=== PATIENT | female | born 2000 | race Caucasian/White ===

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

== ENCOUNTER 2021-01-17 23:56 | Inpatient (IN) | payer BC, OTHER ==
[~2021-01-17] VITALS: Ht 170.2 cm; Wt 59.0 kg
[~2021-01-17 23:56] MED LIST changes: -ESCITALOPRAM OX20 MG PO; +LEVOFLOXACIN500 MG PO; +PROZAC 10 MG CA10 MG PO
[2021-01-18 00:28] LABS: HEMOGLOBIN 15.7 gm/dl (12.3-15.3); RED BLOOD COUNT 5.23 M/UL (4.00-5.10)
[2021-01-18 00:41] LABS: WHITE BLOOD COUNT 33.1 K/UL (4.5-11.0)
[2021-01-18 00:52] LABS: BUN/CREATININE RATIO 27 (0-10)
[2021-01-18 03:10] LABS: BUN/CREATININE RATIO 25 (0-10)
[2021-01-18 09:30] LABS: RED BLOOD COUNT 4.83 M/UL (4.00-5.10)
[2021-01-18 09:32] LABS: WHITE BLOOD COUNT 17.2 K/UL (4.5-11.0)
[2021-01-18 09:50] LABS: BUN/CREATININE RATIO 22 (0-10)
[2021-01-18 12:58] LABS: BUN/CREATININE RATIO 26 (0-10)
[2021-01-18 16:55] LABS: BUN/CREATININE RATIO 21 (0-10)
[2021-01-18 20:20] LABS: BUN/CREATININE RATIO 26 (0-10)
[2021-01-19 05:12] LABS: HEMOGLOBIN 12.3 gm/dl (12.3-15.3)
[2021-01-19 05:27] LABS: RED BLOOD COUNT 4.25 M/UL (4.00-5.10); WHITE BLOOD COUNT 7.9 K/UL (4.5-11.0)
[2021-01-19 05:31] LABS: BUN/CREATININE RATIO 13 (0-10)
[2021-01-19 09:34] LABS: BUN/CREATININE RATIO 12 (0-10)
[2021-01-19 10:50] LABS: BUN/CREATININE RATIO 11 (0-10)
[2021-01-19 13:01] LABS: BUN/CREATININE RATIO 9 (0-10)
[2021-01-19 16:59] LABS: BUN/CREATININE RATIO 10 (0-10)
[2021-01-19 18:49] LABS: BUN/CREATININE RATIO 12 (0-10)
[2021-01-19 22:22] LABS: BUN/CREATININE RATIO 13 (0-10)
[2021-01-20 03:10] LABS: HEMOGLOBIN 10.7 gm/dl (12.3-15.3); RED BLOOD COUNT 3.83 M/UL (4.00-5.10); WHITE BLOOD COUNT 5.4 K/UL (4.5-11.0)
[2021-01-20 03:40] LABS: BUN/CREATININE RATIO 12 (0-10)
[2021-01-20] MEDS ORDERED: K-PHOS TAB505 MG PO (11:00)
[2021-01-20 16:09] LABS: BUN/CREATININE RATIO 12 (0-10)
== END 2021-01-20 17:10 | disposition home or self-care (01) | DRG 637 ==
LOC: ER1 23:56 → CDU 01-18 04:01 → CCU 01-18 04:01
PROVIDERS: Family Medicine; Internal Medicine; ADMIT Internal Medicine
DX: E10.10 Type 1 diabetes mellitus with ketoacidosis without coma (principal); K85.90 Acute pancreatitis without necrosis or infection, unspecified; Z20.822 Contact with and (suspected) exposure to COVID-19; F90.9 Attention-deficit hyperactivity disorder, unspecified type; F41.9 Anxiety disorder, unspecified; E86.0 Dehydration; E87.6 Hypokalemia; E83.39 Other disorders of phosphorus metabolism; E83.42 Hypomagnesemia; Z79.4 Long term (current) use of insulin; Z91.14 Patient's other noncompliance with medication regimen; Z80.6 Family history of leukemia
CPT/HCPCS: 36415; 71045; 80048; 80053; 80307; 81001; 82009; 82150; 82550; 82553; 82803; 82962; 83036; 83605; 83690; 83735; 83874; 84100; 84484; 84703; 85025; 85027; 87040; 96374; 99285; C9113; J1650; J2405; J3475; J3480; J7030; Q9967; U0002

== ENCOUNTER 2021-05-16 19:25 | Emergency (ER) | payer BC, OTHER ==
[~2021-05-16 19:25] MED LIST changes: +K-PHOS TAB505 MG PO
[2021-05-16] MEDS ORDERED: IBUPROFEN600 MG PO (20:19)
[2021-05-16] MEDS ORDERED: CEPHALEXIN500 MG PO (20:19)
== END 2021-05-16 20:43 | disposition home or self-care (01) ==
LOC: ER1 19:25
DX: T17.1XXA Foreign body in nostril, initial encounter (principal); J34.0 Abscess, furuncle and carbuncle of nose; E10.9 Type 1 diabetes mellitus without complications; F17.290 Nicotine dependence, other tobacco product, uncomplicated
CPT/HCPCS: 30300; 99283

== ENCOUNTER 2021-06-12 07:43 | Inpatient (IN) | payer BC, OTHER ==
[~2021-06-12] VITALS: Ht 170.2 cm; Wt 61.2 kg
[~2021-06-12 07:43] MED LIST changes: +CEPHALEXIN500 MG PO; +IBUPROFEN600 MG PO
[2021-06-12 08:18] LABS: HEMOGLOBIN 15.8 gm/dl (12.3-15.3); RED BLOOD COUNT 5.32 M/UL (4.00-5.10); WHITE BLOOD COUNT 14.1 K/UL (4.5-11.0)
[2021-06-12 09:26] LABS: BUN/CREATININE RATIO 26 (0-10)
[2021-06-12 11:11] LABS: BUN/CREATININE RATIO 22 (0-10)
[2021-06-12] MEDS ORDERED: ADMELOG SO100 UNIT/1 SC (11:57)
[2021-06-12 12:56] LABS: BUN/CREATININE RATIO 22 (0-10)
[2021-06-12 15:46] LABS: BUN/CREATININE RATIO 18 (0-10)
[2021-06-12 20:36] LABS: BUN/CREATININE RATIO 15 (0-10)
[2021-06-13 00:04] LABS: BUN/CREATININE RATIO 12 (0-10)
[2021-06-13 09:33] LABS: HEMOGLOBIN 12.3 gm/dl (12.3-15.3); RED BLOOD COUNT 4.2 M/UL (4.00-5.10); WHITE BLOOD COUNT 7.3 K/UL (4.5-11.0)
[2021-06-13 09:53] LABS: BUN/CREATININE RATIO 10 (0-10)
[2021-06-13 12:13] LABS: BUN/CREATININE RATIO 11 (0-10)
[2021-06-13 16:09] LABS: BUN/CREATININE RATIO 12 (0-10)
[2021-06-14 05:09] LABS: HEMOGLOBIN 11.6 gm/dl (12.3-15.3); RED BLOOD COUNT 3.94 M/UL (4.00-5.10)
[2021-06-14 05:11] LABS: WHITE BLOOD COUNT 5.1 K/UL (4.5-11.0)
[2021-06-14 05:38] LABS: BUN/CREATININE RATIO 13 (0-10)
[2021-06-14 15:26] LABS: BUN/CREATININE RATIO 10 (0-10)
== END 2021-06-14 17:17 | disposition home or self-care (01) | DRG 639 ==
LOC: ER1 07:43 → CDU 11:28 → PROG CARE 13:04 → CCU 21:02
PROVIDERS: Nurse Practitioner; Physician Assistant Medical; ADMIT Internal Medicine Infectious Disease
DX: E10.10 Type 1 diabetes mellitus with ketoacidosis without coma (principal); E87.6 Hypokalemia; R79.89 Other specified abnormal findings of blood chemistry; Z20.822 Contact with and (suspected) exposure to COVID-19; F90.9 Attention-deficit hyperactivity disorder, unspecified type; F41.9 Anxiety disorder, unspecified; Z79.4 Long term (current) use of insulin; Z80.6 Family history of leukemia; Z87.19 Personal history of other diseases of the digestive system; Z88.0 Allergy status to penicillin
CPT/HCPCS: 36415; 71045; 80048; 80053; 81001; 82009; 82150; 82803; 82962; 83036; 83605; 83690; 83735; 84702; 85025; 85027; 87040; 93005; 96374; 99285; G0480; J2060; J7030; J7040; U0002

== ENCOUNTER 2021-11-09 13:24 | Inpatient (IN) | payer BC, OTHER ==
[~2021-11-09] VITALS: Ht 165.1 cm; Wt 59.4 kg
[2021-11-09 14:26] LABS: HEMOGLOBIN 16.3 gm/dl (12.3-15.3); RED BLOOD COUNT 5.41 M/UL (4.00-5.10); WHITE BLOOD COUNT 10.9 K/UL (4.5-11.0)
[2021-11-09 14:41] LABS: BUN/CREATININE RATIO 16 (0-10)
[2021-11-09] MEDS ORDERED: VYVANSE30 MG PO (16:39)
[2021-11-09 18:27] LABS: BUN/CREATININE RATIO 22 (0-10)
[2021-11-09 22:35] LABS: BUN/CREATININE RATIO 15 (0-10)
[2021-11-10 02:55] LABS: BUN/CREATININE RATIO 12 (0-10)
[2021-11-10 07:01] LABS: HEMOGLOBIN 12.2 gm/dl (12.3-15.3); RED BLOOD COUNT 4.08 M/UL (4.00-5.10); WHITE BLOOD COUNT 6.1 K/UL (4.5-11.0)
[2021-11-10 07:12] LABS: BUN/CREATININE RATIO 11 (0-10)
[2021-11-10 12:32] LABS: BUN/CREATININE RATIO 9 (0-10)
[2021-11-10 22:30] LABS: BUN/CREATININE RATIO 18 (0-10)
[2021-11-11] MEDS ORDERED: K-TAB ER20 MEQ PO ×2 (10:56→11:00)
[2021-11-11] MEDS ORDERED: ZOFRAN 4 MG TAB4 MG PO (11:09)
[2021-11-11] MEDS ORDERED: MAGNESIUM OXID400 M1 PO (11:09)
== END 2021-11-11 12:05 | disposition home or self-care (01) | DRG 639 ==
LOC: ER1 13:24 → CDU 15:03 → CCU 15:03
PROVIDERS: Family Medicine; Physician Assistant; ADMIT Internal Medicine
DX: E10.10 Type 1 diabetes mellitus with ketoacidosis without coma (principal); E87.6 Hypokalemia; E83.42 Hypomagnesemia; F41.9 Anxiety disorder, unspecified; F90.9 Attention-deficit hyperactivity disorder, unspecified type; Z91.14 Patient's other noncompliance with medication regimen; Z79.4 Long term (current) use of insulin; Z85.6 Personal history of leukemia; Z86.16 Personal history of COVID-19
CPT/HCPCS: 36415; 36600; 71045; 80048; 80053; 80307; 81001; 82009; 82550; 82553; 82803; 82962; 83605; 83690; 83735; 84100; 84132; 84484; 84703; 85025; 93005; 96361; 96374; 96375; 99285; C1894; J2405; J3475; J3480; J7030; J7070; U0002